=== PATIENT | female | born 1965 | race African-American/Black ===

== ENCOUNTER 2016-10-26 02:19 | Inpatient (IN) ==
[2016-10-26] MEDS ORDERED: NS 1,000 ML IV ONE ×3 (02:31→04:54)
[2016-10-26 02:48] LABS: BASO% 0.6 % (0.0-0.8); EOS# 0.06 X1000 (0.0-0.7); EOS% 0.9 % (0.0-10.0); HEMATOCRIT 25.1 % (37.0-47.0); HEMOGLOBIN 8.4 g/dL (12.0-16.0); IMM GRAN# 0.01 X1000 (0.0-0.04); IMM GRAN% 0.1 % (0.0-0.5); LYMPH# 2.48 X1000 (1.2-3.4); MANUAL DIFF NEEDED? NO; MCH 30.2 PG (27-31); MCHC 33.5 g/dL (33-37); MCV 90.3 FL (81-99); MONO# 0.32 X1000 (0.11-0.59); MONO% 4.7 % (1.7-9.3); MPV 9.8 FL (7.4-10.4); NEUT% 57.7 % (42.2-75.2); PLT 244 X1000 (130-400); RBC 2.78 XMIL (4.2-5.4)
--- NOTE | 2016-10-26 02:56 | EKG Report ---
Test Performed on : 10/26/2016 02:53:32 AM Test Reason : CHEST PAIN Blood Pressure : / mmHG Vent. Rate : 071 BPM Atrial Rate : 071 BPM P-R Int : 216 ms QRS Dur : 084 ms QT Int : 468 ms P-R-T Axes : 082 000 074 degrees QTc Int : 508 ms Sinus rhythm. with 1st degree AV block. Nonspecific T wave abnormality Abnormal ECG No previous ECGs available Unconfirmed Result
[2016-10-26 03:11] LABS: ALBUMIN 4.6 g/dL (3.5-5.0); CALCIUM 9.3 mg/dL (8.8-10.2); MAGNESIUM 2.6 mg/dL (1.5-2.7); POTASSIUM 3.5 mmol/L (3.5-5.1); TOTAL BILIRUBIN 0.4 mg/dL (0.20-1.00); TOTAL PROTEIN 8.2 g/dL (6.3-8.3)
[2016-10-26 03:18] LABS: FREE T4 0.1 ng/dL (0.93-1.70)
[2016-10-26 03:43] LABS: CK INDEX 0.6 (0.0-2.5); CK-MB 17.31 ng/mL (0.0-5.0)
[2016-10-26 03:56] LABS: INR 1.04 (0.86-1.15); PROTIME 13.9 Seconds (12.1-15.5)
[2016-10-26 03:57] LABS: PTT PL 38.6 Seconds (22.6-43.9)
[2016-10-26 04:02] LABS: RETIC% 1.65 % (0.8-2.1); RETIC-HE 33.1 PG (28.2-36.6)
[2016-10-26 04:07] LABS: UR AMPHETAMINES QUAL NONE DETECTED (NONE DETECT); UR BARBITUATES QUAL NONE DETECTED (NONE DETECT); UR BENZODIAZEPIN QUAL NONE DETECTED (NONE DETECT)
[2016-10-26 04:08] LABS: BILIRUBIN URINE NEGATIVE (NEGATIVE); BLOOD URINE NEGATIVE (NEGATIVE); CLARITY CLEAR (CLEAR); COLOR YELLOW; GLUCOSE URINE NEGATIVE (NEGATIVE); LEUKOCYTES URINE TRACE (NEGATIVE); NITRITE URINE NEGATIVE (NEGATIVE); PH URINE 6.5; PROTEIN URINE NEGATIVE (NEGATIVE); SP GRAVITY URINE 1.005; UR CANNABINOIDS QUAL NONE DETECTED (NONE DETECT); UR COCAINE QUAL PRESUMPTIVE POSITIVE (NONE DETECT); UR MDMA QUAL NONE DETECTED (NONE DETECT); UR METHADONE QUAL NONE DETECTED (NONE DETECT); UR METHAMPHETAMINE QUAL NONE DETECTED (NONE DETECT); UR OPIATES QUAL NONE DETECTED (NONE DETECT); UR OXYCODONE QUAL NONE DETECTED (NONE DETECT); UR PCP QUAL NONE DETECTED (NONE DETECT); UR TCA QUAL NONE DETECTED (NONE DETECT); UROBILINOGEN URINE NORMAL
[2016-10-26 04:10] LABS: URINE SOURCE CLEAN CATCH
[2016-10-26 04:11] LABS: URINE CULTURE PL NEEDED? YES; URINE EPITHELIAL CELLS <10 /HPF (<10); URINE RBC <10 /HPF (<10); URINE WBC <10 /HPF (<10)
[2016-10-26] MEDS ORDERED: ZOFRAN IV PRN (04:54)
--- NOTE | 2016-10-26 06:15 | Diag Imaging Result Doc PS360 ---
EXAM : HEAD/C-SPINE W/O CONTRAST HISTORY: trauma TECHNIQUE: CT head without. CT cervical spine without. COMPARISON: None. FINDINGS: Head: No parenchymal hemorrhage. No epidural or subdural hematoma. No subarachnoid hemorrhage. No mass identified on this noncontrasted exam. No hydrocephalus. No sinus opacification. Cervical spine: There is good alignment to the cervical spine. No precervical soft tissue swelling. No subluxation. No fracture. IMPRESSION: Head: No hemorrhage. No injury. Cervical spine: No acute fracture. A preliminary report was given at 3:45 AM. Electronically signed by Mikie Bolivar 10/26/2016 6:13 AM
[2016-10-26] MEDS ORDERED: NS 1,000 ML IV SCH (09:23)
[2016-10-26] MEDS: M.V.I.-12 10 ML, FOLIC ACID 1 MG, MAGNESIUM SULFATE 1 GM, THIAMINE 100 MG in NS 1,000 ML IV SCH (09:47)
[2016-10-26 11:19] LABS: ALBUMIN 3.8 g/dL (3.5-5.0); CALCIUM 8.1 mg/dL (8.8-10.2); MAGNESIUM 2.4 mg/dL (1.5-2.7); POTASSIUM 3.2 mmol/L (3.5-5.1); TOTAL BILIRUBIN 0.3 mg/dL (0.20-1.00); TOTAL PROTEIN 7.1 g/dL (6.3-8.3)
[2016-10-26 11:24] LABS: HEMATOCRIT 22.6 % (37.0-47.0); HEMOGLOBIN 7.5 g/dL (12.0-16.0); MCH 30.1 PG (27-31); MCHC 33.2 g/dL (33-37); MCV 90.8 FL (81-99); MPV 9.8 FL (7.4-10.4); RBC 2.49 XMIL (4.2-5.4)
[2016-10-26 11:43] LABS: CK INDEX 0.7 (0.0-2.5); CK-MB 14.2 ng/mL (0.0-5.0)
[2016-10-26] MEDS ORDERED: PRILOSEC ONE (11:50)
[2016-10-26] MEDS: PRILOSEC PO SCH (11:50)
--- NOTE | 2016-10-26 12:26 | Extremity Venous Study ---
EXAM: Venous U/S Bilateral Legs HISTORY: elevated ddimer TECHNIQUE: Venous COMPRESSION ultrasound with color Doppler COMMENT: The deep veins of both lower extremities are compressible and demonstrate color Doppler flow with augmentation. There is a cyst in the right popliteal fossa. IMPRESSION: No evidence of deep venous thrombosis. Right Gonzalez's cyst. Electronically signed by Jarrell Sosa 10/26/2016 12:24 PM
--- NOTE | 2016-10-26 15:54 | HISTORY AND PHYSICAL ---
CHIEF COMPLAINT: Unresponsive. HISTORY OF PRESENT ILLNESS: This is a 51-year-old female who presented to the emergency room via EMS after being found in a tub unresponsive by her children. According to the chart, the patient was talking on EMS arrival. Per the chart, a knife was found in the bathroom with the patient, the patient stating that she was going to use it to tighten the faucet. She was tearful. She did state that her had left her about a month ago and that "I am tired of trying and I just can't do it." Reportedly, she does have a prior history of suicidal ideation, receiving inpatient psych treatment through [place]. In the emergency room, she was tearful, but she did answer questions and she was cooperative. In the emergency room, a CT of the head and C-spine was performed, which revealed no hemorrhage, no injury, and no acute fracture. She was given 2 L of fluid and admitted to ICU for further evaluation and treatment. PAST MEDICAL HISTORY: 1. Hypothyroid, status post thyroidectomy. 2. Sickle cell disease. 3. Prior suicidal ideation. PAST SURGICAL HISTORY: Thyroidectomy. SOCIAL HISTORY: She smokes half a pack of cigarettes a day. She does drink beer daily. She does have some illicit substance abuse. ALLERGIES: No known drug allergies. HOME MEDICATIONS: None. REVIEW OF SYSTEMS: Unable to obtain. The patient just keeps saying that she is tired and she just wants to sleep. PHYSICAL EXAMINATION: GENERAL: This is a 51-year-old female, who is lying in the bed in no distress. VITAL SIGNS: Blood pressure is 119/90 with a heart rate of 68. Respirations are 16. Temperature is 99.2 degrees with room air saturations 98% to 100%. HEENT: Head is normocephalic, atraumatic. Pupils equal, round, react to light. EOMs are intact. Sclerae anicteric. Mucous membranes are dry. CARDIOVASCULAR: Regular rate and rhythm. S1 and S2 are appreciated. PULMONARY: Breath sounds are clear, with no increased work of breathing noted. GASTROINTESTINAL: Abdomen is soft, nontender, and nondistended, with bowel sounds in all 4 quadrants. MUSCULOSKELETAL: Good range of motion of joints. SKIN: Warm and dry. GENITOURINARY: Salazar is patent, with clear yellow urine draining. EXTREMITIES: No clubbing, cyanosis, or edema. Calves are nontender. Pulses are palpable x4. LABORATORY AND IMAGING: WBC is 6.8 with hemoglobin 8.4, hematocrit 25.1, and platelets of 244,000. Sodium is 133, potassium 3.5, BUN 11, creatinine 1.3, with a glucose of 75. AST is 83, ALT is 40. CPK is 2714. Troponin 0.065. Her TSH is 55.4 with a free T4 of 0.10. CT of the head and cervical spine revealed no acute processes. ASSESSMENT AND PLAN: 1. Suicidal ideation. Patient states that she "just can't do it anymore." She will be placed in ICU on suicide precautions. Once she is stable, she will be evaluated by Edna Fonseca. 2. Cocaine abuse, for which she will be placed on telemetry. We will follow vital signs. 3. Alcohol use and abuse. We will give her a banana bag as well as monitor for any signs of withdrawal. 4. Protein calorie malnutrition. Patient states that she has not eaten much solid food at all over the last month. She just does not feel like eating. Will supplement vitamins and we will try to encourage her to increase her p.o. intake. 5. Elevated D-dimer. She does have a creatinine of 1.3, so at this time we will not do a CTA. We will continue to hydrate and will get a bilateral lower extremity Doppler. 6. Acute kidney injury. We will hydrate, hold any renal toxic medications, and trend her labs. 7. Rhabdomyolysis. She does have a CPK of 2714. We are unsure of any fall or injury. We will monitor her labs and continue with IV hydration. 8. Hypothyroid. She has had a thyroidectomy in the past. We will start levothyroxine at 100 mcg and trend her labs. 9. Hyponatremia. We will give IV hydration and trend labs. Further treatments pending hospital course. Dictated by OLI Small for Yordan Mccollum MD cc: OLI Small MD
[2016-10-26] MEDS: NS 1,000 ML IV SCH ×2 (18:00→18:17)
[2016-10-26 18:08] LABS: CK INDEX 0.6 (0.0-2.5); CK-MB 11.04 ng/mL (0.0-5.0)
--- NOTE | 2016-10-26 18:42 | PROVIDER DOCUMENTATION ---
This chart was entered by Mo Marley Scribe, acting as scribe for Gallo Damon DO. HPI-General Adult - General Chief Complaint: Low Blood Sugar Stated Complaint: AMS, low blood sugar Time Seen by Provider: 10/26/16 02:23 Source: patient, EMS Allergies/Adverse Reactions: Patient Allergies Allergy/AdvReac Type Severity Reaction Status Date / Time No Known Allergies Allergy Verified 10/26/16 02:25 Home Medications: Home Medication List Medication Instructions Recorded Confirmed Last Taken Type NK [No Home Medications] 10/26/16 10/26/16 Unknown History - History of Present Illness -Gen Adult Nature of Presenting Problems: 51 yo F presents to the ER via EMS. Pt was found unresponsive in the tub by her kids. They called 911 and pt was talking when EMS arrived. PT complains of pain all over. PT states she barely ate today and the AC in her house is broken. Pt has a hx of sickle cell. Review of Systems - Adult - REVIEW OF SYSTEMS - ADULT Constitutional: denies: chills, fever Cardiovascular: denies: chest pain, palpitations Respiratory: denies: cough, shortness of breath Gastrointestinal: denies: abdominal pain, nausea, vomiting Musculoskeletal: reports: see HPI, muscle aches. denies: back pain, neck pain All Other Systems: Reviewed and Negative Past History - Adult - PAST MEDICAL HISTORY-ADULT Review of Records: reports: Old Records Reviewed, Nursing Assessment Review, Medications Reviewed, Social history reviewed & non-contributory. - IMMUNIZATION STATUS Childhood Immunizations: See Nurse Assessment Flu Vaccine: See Nurse Assessment Physical Exam-General - PHYSICAL EXAM-ADULT Initial Vital Signs Reviewed: Yes - CONSTITUTIONAL General Appearance: appears well, no apparent distress, slow to respond - RESPIRATORY Respiratory: chest non-tender, lungs clear, normal breath sounds - CARDIOVASCULAR Cardiovascular: normal peripheral pulses, regular rate, rhythm - GASTROINTESTINAL (ABDOMEN) Abdominal Exam: normal bowel sounds, non tender, soft - SKIN Integumentary: normal color, normal turgor, warm/dry Progress - PLAN OF CARE/RESULTS Progress/Plan/Lab Results: Vital Signs - 8 hr 10/26/16 02:20 Temperature 97.2 F L Pulse Rate 68 Respiratory Rate 12 Blood Pressure 126/94 O2 Sat by Pulse Oximetry 97 Laboratory Results - last 24 hr 10/26/16 02:35 WBC 6.88 RBC 2.78 L Hgb 8.4 L Hct 25.1 L MCV 90.3 MCH 30.2 MCHC 33.5 RDW Std Deviation 15.0 H Plt Count 244 MPV 9.8 Immature Gran % (Auto) 0.1 Neut % (Auto) 57.7 Lymph % (Auto) 36.0 [place] % (Auto) 4.7 Eos % (Auto) 0.9 Baso % (Auto) 0.6 Immature Gran # (Auto) 0.01 Neut # (Auto) 3.97 Lymph # (Auto) 2.48 [place] # (Auto) 0.32 Eos # (Auto) 0.06 Baso # (Auto) 0.04 Orders Category Date Time Status Cardiac Monitoring DIRECTED Care 10/26/16 02:29 Active Saline Loc NOW Care 10/26/16 02:29 Active HEAD/C-SPINE W/O CONTRAST [CT] Stat Exams 10/26/16 02:30 Ordered ALCOHOL BLOOD Stat Lab 10/26/16 02:35 Received CBC WITH ELECTRONIC DIFF [HEME] Stat Lab 10/26/16 02:35 Completed CK PROFILE [SP CHEM] Stat Lab 10/26/16 02:35 Received COMPREHENSIVE METABOLIC PANEL [CHEM] Stat Lab 10/26/16 02:35 Received D-DIMER PL [COAG] Stat Lab 10/26/16 02:35 Received FREE T4 Stat Lab 10/26/16 02:35 Received MAGNESIUM [CHEM] Stat Lab 10/26/16 02:35 Received PRO B-NATRIURETIC PEPTIDE Stat Lab 10/26/16 02:35 Received [address]IME WITH INR PL [COAG] Stat Lab 10/26/16 02:[address] [COAG] Stat Lab 10/26/16 02:35 Received TROPONIN T Stat Lab 10/26/16 02:35 Received TSH Stat Lab 10/26/16 02:[address] W/POSS RFLX CULT [URINALYSIS] Stat Lab 10/26/16 02:30 Uncollected URINE DRUG SCREEN PL Stat Lab 10/26/16 02:30 Uncollected 0.9% Sodium Chloride Inj [Ns] 1,000 ml Med 10/26/16 02:31 Active IV 999 mls/hr EKG [EKG] Stat Ther 10/26/16 02:29 Ordered Result Diagrams: 10/26/16 10:54 07/14/17 10:54 - EKG 1 Time of EKG reading by physician:: 02:53 EKG Read and Signed by:: Gallo Damon EKG Interpretation (*Must complete 3 of following elements*): Abnormal Rate: 71 Rhythm: sinus rhythm with 1st degree AV block [place]: normal QRS: normal MA Interval: normal Comments: non specific t wave abnormality Departure - Departure Date of Disposition Decision: 10/26/16 Time of Disposition Decision: 03:00 DIAGNOSIS: Depression Qualifiers: Depression Type: major depressive disorder Major depression recurrence: recurrent Active/Remission status: currently active Major depression episode severity: mild Qualified Code(s): F33.0 - Major depressive disorder, recurrent, mild Disposition: ADMITTED INPATIENT 09 Certified Medical Emergency: Emergent Condition: Stable - Critical Care Note This patient required my direct & personal management of CC.: No This chart was documented by the indicated scribe, (Mo Marley, Scribe) and accurately reflects the services I performed and decisions made by me, Gallo Damon, , as attested by the provider's signature.
[2016-10-27] MEDS: NS 1,000 ML IV SCH ×3 (01:02→22:04)
[2016-10-27] MEDS: SYNTHROID PO SCH (06:14)
[2016-10-27] MEDS: PRILOSEC PO SCH (06:14)
[2016-10-27 06:19] LABS: HEMATOCRIT 21.2 % (37.0-47.0); HEMOGLOBIN 6.8 g/dL (12.0-16.0); MCH 29.6 PG (27-31); MCHC 32.1 g/dL (33-37); MCV 92.2 FL (81-99); MPV 10.3 FL (7.4-10.4); RBC 2.3 XMIL (4.2-5.4)
[2016-10-27 06:41] LABS: IRON SATURATION 11 %; TIBC 258 ug/dL; TOTAL IRON 29 ug/dL (49-151); UNBOUND IRON 229 ug/dL (112-346)
[2016-10-27 06:42] LABS: AGAP 9; ALBUMIN 3.5 g/dL (3.5-5.0); ALKALINE PHOSPHATASE 77 U/L (32-104); BUN 12 mg/dL (8-22); CALCIUM 8.2 mg/dL (8.8-10.2); CHLORIDE 105 mmol/L (98-107); COSMO 270; GOT 84 U/L (10-30); GPT 38 U/L (10-36); POTASSIUM 3.4 mmol/L (3.5-5.1); SODIUM 135 mmol/L (136-145); TCO2 21 mmol/L (25-35); TOTAL BILIRUBIN < 0.15 mg/dL (0.20-1.00); TOTAL PROTEIN 6.4 g/dL (6.3-8.3)
[2016-10-27 07:39] LABS: CK INDEX 0.5 (0.0-2.5); CK-MB 7.06 ng/mL (0.0-5.0)
[2016-10-27] MEDS: M.V.I.-12 10 ML, FOLIC ACID 1 MG, MAGNESIUM SULFATE 1 GM, THIAMINE 100 MG in NS 1,000 ML IV SCH (09:30)
[2016-10-27 11:15] LABS: FERRITIN 8 ng/mL (13-150)
[2016-10-27] MEDS ORDERED: ROCEPHIN 1 GM/NS 1 GM/50 ML IVPB IV SCH (11:30)
[2016-10-27] MEDS ORDERED: ATIVAN IV PRN (11:34)
--- NOTE | 2016-10-27 12:11 | PROGRESS NOTE ---
DATE: 10/27/2016 SUBJECTIVE: Patient notes that she is feeling fine. Denies any chest pain, palpitations. Denies any GI or issues. Denies any blood in her stool. OBJECTIVE: Vital signs: Temperature 98, pulse 61, respiratory rate 13, blood pressure 106/79, saturation 100% on room air. General: Patient is awake, alert, oriented. She is currently in no respiratory distress. She is lying in bed flatly, watching TV. HEENT: Normocephalic, atraumatic. LAURY. Neck: Supple. CARDIOVASCULAR: Regular rate. Chest: Relatively clear. Abdomen: Soft. Extremities: Moves all extremities. Neurologic: No focal changes. Skin: Warm and dry. No rashes. LABORATORY: Hemoglobin and hematocrit 6 and 21, was 8 and 27 on admit. Sodium 135, potassium 3.4, creatinine 1.2. UA growing gram-negative rods. ASSESSMENT: 1. Gram-negative jacek urinary tract infection. We will add Rocephin. 2. Anemia, likely of chronic disease. Her hemoglobin and hematocrit were 8 and 24 on admit. Have slowly continued to dwindle with dilution. No signs or symptoms of bleeding. 3. Hypokalemia. Resolved. 4. Acute hepatitis. AST and ALT both are mildly elevated from admit, but have remained stable. We will continue to follow. 5. Rhabdomyolysis continues to improve. Creatine phosphokinase was 2700 on admit. Currently down to 1400. 6. Hypothyroidism. The patient's thyroid stimulating hormones was 55 on admit. She has been started on Synthroid. 7. Suicide ideations. Patient will remain in the ICU secondary to this. PLAN: We will continue patient as noted above. Start Rocephin. Type, cross, transfuse 2 units. Recheck labs in the a.m. cc: Yordan Mccollum MD
[2016-10-27] MEDS: MOTRIN PO PRN (23:14)
[2016-10-28] MEDS: NS 1,000 ML IV SCH (02:03)
[2016-10-28 06:09] LABS: HEMATOCRIT 27.3 % (37.0-47.0); HEMOGLOBIN 9.1 g/dL (12.0-16.0); MCH 29.4 PG (27-31); MCHC 33.3 g/dL (33-37); MCV 88.3 FL (81-99); MPV 10.4 FL (7.4-10.4); RBC 3.09 XMIL (4.2-5.4)
[2016-10-28] MEDS: PRILOSEC PO SCH (06:21)
[2016-10-28] MEDS: SYNTHROID PO SCH (06:21)
[2016-10-28 07:22] LABS: CK INDEX 0.5 (0.0-2.5); CK-MB 6.89 ng/mL (0.0-5.0)
[2016-10-28] MEDS: M.V.I.-12 10 ML, FOLIC ACID 1 MG, MAGNESIUM SULFATE 1 GM, THIAMINE 100 MG in NS 1,000 ML IV SCH (09:00)
[2016-10-28] MEDS ORDERED: SYNTHROID PO ONE ×2 (09:45→11:14)
[2016-10-28] MEDS ORDERED: SODIUM BICARBONATE PO ONE (11:14)
[2016-10-28 11:24] LABS: CK INDEX 0.5 (0.0-2.5); CK-MB 7.24 ng/mL (0.0-5.0)
[2016-10-28] MEDS: LEVAQUIN PO SCH (13:17)
[2016-10-28] MEDS: NICODERM PATCH TD SCH (13:17)
[2016-10-28] MEDS: FLAGYL PO SCH ×2 (13:17→17:11)
--- NOTE | 2016-10-28 14:36 | PROGRESS NOTE ---
DATE: 10/28/2016 SUBJECTIVE: Patient notes that she is feeling much better. Denies any nausea, vomiting. Denies any chest pain, GI or issues currently. PHYSICAL: Vital signs: Temperature 98.5 degrees, pulse 49-60, respiratory 15, BP 125/95, saturation 100% on room air. General: Patient is awake, alert, oriented. She is sitting on the side of the bed. She is in no current respiratory distress. Pleasant to talk with. Neck: Supple. CV: Regular rate. Chest: Relatively clear, nonlabored. No wheezing. Abdomen: Soft. Extremities: Moves all extremities. Neurologic: No changes. ASSESSMENT: 1. Escherichia coli urinary tract infection highly sensitive to Levaquin. Will change control manager to Levaquin. 2. Patient has a history of Trichomonas. Will place her on Flagyl. 3. Hypothyroidism. TSH again was elevated today at 54. We will increase her Synthroid to 150. 4. Rhabdomyolysis improved. 5. Hepatitis stable. 6. Chronic alcohol abuse stable. 7. Suicidal ideations. Will consult [facility]. 8. Will give her 1 dose of p.o. bicarb now and to help decrease her rhabdomyolysis. Further orders as needed. cc: Yordan Mccollum MD
[2016-10-28] MEDS: MOTRIN PO PRN (17:11)
[2016-10-28 21:21] LABS: OCCULT BLOOD 1 NEGATIVE (NEGATIVE)
[2016-10-29] MEDS: PRILOSEC PO SCH (06:13)
[2016-10-29] MEDS ORDERED: SYNTHROID PO SCH ×2 (07:00)
[2016-10-29] MEDS: NICODERM PATCH TD SCH ×2 (07:54→07:59)
[2016-10-29] MEDS: LEVAQUIN PO SCH ×2 (07:55→07:59)
[2016-10-29] MEDS: FLAGYL PO SCH ×3 (07:56→12:56)
[2016-10-29] MEDS: M.V.I.-12 10 ML, FOLIC ACID 1 MG, MAGNESIUM SULFATE 1 GM, THIAMINE 100 MG in NS 1,000 ML IV SCH (09:31)
[2016-10-29 11:45] VITALS: BP 128/89
--- NOTE | 2016-10-30 12:26 | DISCHARGE SUMMARY ---
ADMISSION DATE: 10/26/2016 DISCHARGE DATE: 10/29/2016 DISCHARGE DIAGNOSES: 1. Suicidal ideation. Patient currently denies any suicide ideations. She was evaluated and cleared by [facility]. 2. Cocaine abuse. Discussed with patient the perils of drug use. 3. Chronic alcohol use and abuse, resolved. 4. Mild protein calorie malnutrition, stable. 5. Elevated D-dimer with a negative Doppler, negative CT angiography. 6. Acute kidney injury, resolved. 7. Rhabdomyolysis. Continues to improve. Creatine phosphokinase was 2700, currently down to 1300. 8. E-coli urinary tract infection. 9. Trichomonas in her bladder. 10. Hypothyroidism. 11. Hyponatremia. 12. Hypothyroidism. Her TSH was elevated in the hospital. Her Synthroid was increased to 200 daily. CONSULTATIONS: [facility]. PROCEDURE: None. BRIEF HOSPITAL COURSE: The patient is a 51-year-old female, who was admitted as noted on the HPI. Treated in the usual fashion. Placed in ICU secondary to suicidal ideations. She continued to improve, which likely has to do with increasing her Synthroid as well. She did note to have a UTI that was E-coli, highly sensitive to Levaquin. Therefore, she was placed on Levaquin and has done well. DISPOSITION: Greater than 35 minutes was spent in discharge planning and instructions discussed with patient. She needs outpatient life counseling as well as drug counseling. She needs to avoid alcohol as well as other illicit substances. We did increase her Synthroid to 200. She will follow up outpatient with treatment facility of choice. She will take Flagyl and Levaquin for another 5 days at home and then we will discontinue both of these. Certainly would have preferred patient to go to further inpatient counseling at [place], but she declined. cc: Yordan Mccollum MD
== END 2016-10-29 13:00 | disposition home or self-care (01) ==
LOC: P.ED 02:19 → P.ICU 05:10 → P.MEDSURG 10-28 16:50
PROVIDERS: ATTEND Family Medicine